=== PATIENT | male | born 1940 | race Caucasian/White ===

== ENCOUNTER → 2016-10-30 | Outpatient (CLI) | payer MEDICARE, OTHER | LOC: GMAB 10:15 | PROVIDERS: ATTEND Family Medicine | DX: I10 Essential (primary) hypertension (principal); D50.0 Iron deficiency anemia secondary to blood loss (chronic); M10.09 Idiopathic gout, multiple sites; Z12.5 Encounter for screening for malignant neoplasm of prostate | CPT/HCPCS: 84443; 84550; G0103 ==

== ENCOUNTER → 2017-02-05 | Outpatient (CLI) | payer MEDICARE, OTHER ==
--- NOTE | 2017-02-05 14:42 | RAD ---
EXAM DESCRIPTION: Shoulder,Right 2 or More Views CLINICAL HISTORY: 76 years, Male, PAIN COMPARISON: None. FINDINGS: No definite acute fracture or dislocation. Old healed fracture distal clavicle about 3.5 cm from the acromioclavicular joint. IMPRESSION: No acute fracture or dislocation. Old healed fracture distal clavicle Electronically signed by: Eleuterio Arguelles MD 02/05/2017 2:41 PM CDT
== END | disposition home or self-care (01) ==
LOC: RAD 07:58
PROVIDERS: ATTEND Orthopaedic Surgery
DX: M25.511 Pain in right shoulder (principal)

== ENCOUNTER → 2017-06-08 | Outpatient (CLI) | payer MEDICARE, OTHER | END | disposition home or self-care (01) | LOC: GMAB 11:06 | PROVIDERS: ATTEND Family Medicine | DX: R97.20 Elevated prostate specific antigen [PSA] (principal) ==

== ENCOUNTER → 2018-06-23 | Outpatient (CLI) | payer MEDICARE, OTHER | LOC: GMAE 10:25 | PROVIDERS: ATTEND Family Medicine | DX: R97.20 Elevated prostate specific antigen [PSA] (principal) ==

== ENCOUNTER → 2018-12-31 | Outpatient (CLI) | payer MEDICARE, OTHER ==
--- NOTE | 2019-01-01 08:34 | RAD ---
EXAM DESCRIPTION: Hand,Right 3 Views (accession [id number]), Hand,Left 3 Views (accession [id number]): CR/DR/XR CLINICAL HISTORY: 78 years Male M79.642, M79.641 COMPARISON: None. TECHNIQUE: 3 VIEWS bilateral hands. AP. Lateral. Oblique. FINDINGS: Left hand-overall bone density decreased. Deformity of the tuft of the distal phalanx of the left ring finger. Minimal joint space narrowing and subchondral sclerosis of the thumb carpometacarpal joint. No other levels of significant joint space narrowing or periarticular bony changes. Unusual shape of the distal left radius, and articular surface with the scaphoid and lunate bones also seen on the distal right radius. Also shape of the distal ulna is symmetric bilaterally. No abnormal radiodense objects in the joint spaces. Right hand-overall bone density is decreased. No significant joint space narrowing in the hand. Minimal narrowing of the right thumb carpometacarpal joint with subchondral sclerosis. No abnormal radiodense objects in the joint spaces. IMPRESSION: Overall bone density is decreased. 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 Old injury with deformity of the tuft of the distal phalanx of the left ring finger. Unusual shape and morphology of the distal radius and articular surface with the scaphoid and lunate bones and also the shape of the distal ulna is symmetric. Electronically signed by: Weston Wing MD 01/01/2019 8:31 AM CDT
--- NOTE | 2019-01-01 08:34 | RAD ---
EXAM DESCRIPTION: Hand,Right 3 Views (accession [id number]), Hand,Left 3 Views (accession [id number]): CR/DR/XR CLINICAL HISTORY: 78 years Male M79.642, M79.641 COMPARISON: None. TECHNIQUE: 3 VIEWS bilateral hands. AP. Lateral. Oblique. FINDINGS: Left hand-overall bone density decreased. Deformity of the tuft of the distal phalanx of the left ring finger. Minimal joint space narrowing and subchondral sclerosis of the thumb carpometacarpal joint. No other levels of significant joint space narrowing or periarticular bony changes. Unusual shape of the distal left radius, and articular surface with the scaphoid and lunate bones also seen on the distal right radius. Also shape of the distal ulna is symmetric bilaterally. No abnormal radiodense objects in the joint spaces. Right hand-overall bone density is decreased. No significant joint space narrowing in the hand. Minimal narrowing of the right thumb carpometacarpal joint with subchondral sclerosis. No abnormal radiodense objects in the joint spaces. IMPRESSION: Overall bone density is decreased. 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 Old injury with deformity of the tuft of the distal phalanx of the left ring finger. Unusual shape and morphology of the distal radius and articular surface with the scaphoid and lunate bones and also the shape of the distal ulna is symmetric. Electronically signed by: Weston Wing MD 01/01/2019 8:31 AM CDT
== END ==
LOC: RAD 07:45
PROVIDERS: ATTEND Orthopaedic Surgery
DX: Z01.818 Encounter for other preprocedural examination (principal); M19.041 Primary osteoarthritis, right hand; M19.042 Primary osteoarthritis, left hand; M20.002 Unspecified deformity of left finger(s)

== ENCOUNTER → 2019-01-26 | Outpatient (CLI) | payer MEDICARE, OTHER | LOC: GMAE 10:35 | PROVIDERS: ATTEND Family Medicine | DX: I10 Essential (primary) hypertension (principal); E78.5 Hyperlipidemia, unspecified ==